=== PATIENT | male | born 1950 | race Caucasian/White ===

== ENCOUNTER 2024-03-23 06:17 | Emergency (ER) | payer OTHER ==
[~2024-03-23] VITALS: Ht 182.9 cm; Wt 88.8 kg
[2024-03-23 07:16] LABS: Chloride 110 mmol/L (98-107); Potassium 4.2 mmol/L (3.5-5.1); Sodium 142 mmol/L (136-145)
[2024-03-23 07:17] LABS: Anion Gap 6 (5-15); Calcium 10.1 mg/dL (8.5-10.1); Carbon Dioxide 26 mmol/L (20-30)
[2024-03-23 07:20] LABS: Basophils # (auto) 0 10 ^3/uL (0-0.2); Basophils % (auto) 0.3 % (0.0-2.0); Eosinophils # (auto) 0 10 ^3/uL (0-0.8); Eosinophils % (auto) 0.2 % (0.0-7.0); Hemoglobin 16.4 g/dL (13.5-17.5); Lymphocytes # (auto) 0.8 10 ^3/uL (0.4-5.4); Lymphocytes % (auto) 5.7 % (10.0-50.0); Mean Corpuscular Hemoglobin 32.5 pg (28.0-32.0); Mean Corpuscular Hgb Conc. 34.8 g/dL (32.0-36.0); Mean Corpuscular Volume 93.4 fL (80.0-100.0); Monocytes # (auto) 0.9 10 ^3/uL (0-1.3); Monocytes % (auto) 6.7 % (0.0-12.0); Neutrophils # (auto) 12.1 10 ^3/uL (1.6-8.6); Neutrophils % (auto) 87.1 % (37.0-80.0); Red Blood Cells 5.03 10^6/uL (4.5-5.90); Red Cell Distribution Width 13.5 % (11.8-14.3); White Blood Cell 13.9 10^3/uL (4.4-10.8)
[2024-03-23 07:22] LABS: BUN/Creatinine Ratio 15.8 (10.0-20.0); Blood Urea Nitrogen 25 mg/dL (9-23); Glucose 134 mg/dL (74-106)
[2024-03-23] MEDS: SODIUM CHLORIDE 0.9% 1,000 ML IV ONE ×2 (07:49→10:02)
[2024-03-23] MEDS: metroNIDAZOLE 500MG/100ML 100 ML IV ONE ×2 (07:51→08:34)
[2024-03-23] MEDS: cefTRIAXone 1GM/50ML D5W 50 ML IV ONE ×2 (07:51→08:35)
[2024-03-23 07:55] VITALS: PULSE 84; RESP 20; O2SAT 95
[2024-03-23] MEDS: ONDANSETRON HCL 4 MG/2 ML VIAL IV ONE (09:53)
[2024-03-23] MEDS: MORPHINE SULFATE 4 MG/ML SYR/VIAL IV ONE (09:53)
[2024-03-23 11:40] LABS: Urine Bacteria None Seen /hpf (None Seen)
[2024-03-23] MEDS ORDERED: LEVO500T91 PO (11:47)
[2024-03-23] MEDS ORDERED: METR-344 PO (11:47)
[2024-03-23 11:50] LABS: Urine Blood Negative /uL (Negative); Urine Clarity Clear (Clear); Urine Color Yellow (Yellow); Urine Hyaline Cast FEW /lpf (0 - 2); Urine Mucus FEW (None Seen); Urine Protein, UAD Negative (Negative); Urine Urobilinogen Normal (Negative); Urine WBC 1 /hpf (0 - 3)
[2024-03-23 12:00] VITALS: TEMP 97.3
[2024-03-23 12:25] VITALS: BP 153/84; PULSE 81; RESP 12; O2SAT 97
== END 2024-03-23 12:52 | disposition home or self-care (01) ==
LOC: ER 06:17
DX: K52.9 Noninfective gastroenteritis and colitis, unspecified (principal); I10 Essential (primary) hypertension; Z98.890 Other specified postprocedural states; Z87.891 Personal history of nicotine dependence
CPT/HCPCS: 36415; 74176; 80048; 81001; 83605; 84484; 85025; 87040; 96361; 96365; 96368; 96375; 99285; J0696; J2270; J2405; J3490; J7030